=== PATIENT | female | born 1960 | race Caucasian/White ===

== ENCOUNTER 2018-08-22 07:53 | Emergency (ER) | payer BC, OTHER ==
[~2018-08-22] VITALS: Ht 162.6 cm; Wt 99.8 kg
[2018-08-22] MEDS ORDERED: ASPIR 8181 MG PO (08:10)
[2018-08-22] MEDS ORDERED: GLUCOPHAGE XR500 MG PO (08:11)
[2018-08-22] MEDS ORDERED: BELVIQ XR20 MG PO (08:11)
[2018-08-22] MEDS ORDERED: XYZAL5 MG PO (08:12)
[2018-08-22] MEDS ORDERED: CRESTOR20 MG PO (08:12)
[2018-08-22] MEDS ORDERED: CENTRUM SILVER1 EAC4 PO (08:12)
[2018-08-22] MEDS ORDERED: VIVISCAL (08:14)
[2018-08-22] MEDS ORDERED: ZPAK PO (08:15)
[2018-08-22 08:26] VITALS: BP 149/89
== END 2018-08-22 08:27 | disposition home or self-care (01) ==
LOC: M.ERS 07:53
DX: J18.9 Pneumonia, unspecified organism (principal); E78.5 Hyperlipidemia, unspecified; Z90.89 Acquired absence of other organs; Z98.890 Other specified postprocedural states

== ENCOUNTER 2019-05-11 09:24 | Emergency (ER) | payer BC, OTHER ==
[~2019-05-11] VITALS: Ht 162.6 cm; Wt 117.9 kg
[~2019-05-11 09:24] MED LIST: ASPIR 8181 MG PO; BELVIQ XR20 MG PO; CENTRUM SILVER1 EAC4 PO; CRESTOR20 MG PO; GLUCOPHAGE XR500 MG PO; VIVISCAL; XYZAL5 MG PO; ZPAK PO
[2019-05-11] MEDS ORDERED: LISINOPRIL2.5 MG PO (09:43)
[2019-05-11] MEDS ORDERED: NORCO 5-325 TA1 EAC1 PO (11:17)
[2019-05-11] MEDS ORDERED: MELOXICAM15 MG PO (11:17)
[2019-05-11 11:29] VITALS: BP 150/68
== END 2019-05-11 11:30 | disposition home or self-care (01) ==
LOC: M.ERS 09:24
DX: S80.01XA Contusion of right knee, initial encounter (principal); M79.89 Other specified soft tissue disorders; E78.5 Hyperlipidemia, unspecified; Z98.890 Other specified postprocedural states; W08.XXXA Fall from other furniture, initial encounter; Y93.89 Activity, other specified; Y92.89 Other specified places as the place of occurrence of the external cause; Y99.8 Other external cause status